=== PATIENT | female | born 1975 | race American Indian/Alaskan Native ===

== ENCOUNTER 2016-03-19 12:36 | Emergency (ER) | payer MEDICAID ==
[2016-03-19 12:52] VITALS: BP 122/77
== END 2016-03-19 17:47 | disposition left against medical advice (07) ==
LOC: ED 12:36
DX: M54.5 Low back pain (principal); M25.511 Pain in right shoulder; Z53.21 Procedure and treatment not carried out due to patient leaving prior to being seen by health care provider